=== PATIENT | male | born 1955 | race Caucasian/White ===

== ENCOUNTER → 2017-07-15 | Outpatient (CLI) | payer OTHER ==
[~2017-07-15] MED LIST: ABILIFY 5 MG TAB5 MG PO; ALDACTONE25 MG PO; AMITRIPTYLINE H50 M2 GT; BENTYL 10 MG CA10 M1 PO; CHLORTHALIDONE25 MG PO; CLONAZEPAM PO; CLONIDINE HCL0.2 M2 PO; COZAAR 25 MG TA25 M1 PO; CRESTOR20 MG PO; DEPAKOTE ER500 M1 PO; FLECAINIDE ACET50 M1 PO; INSPRA25 MG PO; LOFIBRA160 MG PO; NEXIUM40 MG PO; POTASSIUM20 PO; PRADAXA150 MG PO; PROTONIX40 M1 PO; SINGULAIR 10 MG10 M1 PO; SYNTHROID112 MCG PO; TOPROL XL100 MG PO; TOPROL XL200 MG PO
[2017-07-15 09:36] LABS: HEMATOCRIT 45.6 % (42.0-52.0); HEMOGLOBIN 15.7 gm/dL (14.0-18.0); MCH 30.1 pg (26.0-34.0); MCHC 34.5 g/dL (28.0-37.0); MCV 87.4 fL (80.0-100.0); RBC 5.22 mil/uL (4.50-6.00); RDW 14.6 % (10.5-14.5); WBC 9.3 thou/uL (4.0-11.0)
[2017-07-15 09:48] LABS: CALCIUM 9.2 mg/dL (8.5-10.1); CREATININE 1.3 mg/dL (0.7-1.3); POTASSIUM 3.7 mmol/L (3.5-5.1)
[2017-07-15 09:54] LABS: ALBUMIN 3.6 g/dL (3.4-5.0); TOTAL BILIRUBIN 0.5 mg/dL (<0.1-1.0); TOTAL PROTEIN 7.3 g/dL (6.4-8.2)
== END ==
LOC: LABMALL 09:06 → CAT 13:16
PROVIDERS: Internal Medicine Cardiovascular Disease
DX: I48.91 Unspecified atrial fibrillation (principal)

== ENCOUNTER 2017-07-21 06:37 | Observation (INO) | payer OTHER ==
[2017-07-21] VITALS (13 sets, daily range): BP systolic 118–156; BP diastolic 72–87
[~2017-07-21] VITALS: Ht 188 cm; Wt 116.6 kg
--- NOTE | ~2017-07-21 | D ---
[facility] [place] [address] DISCHARGE SUMMARY Name: ARTHURJASONCHRISTOPHERNATTY [id number] Admission: 07/21/17 Attend Phys: Francisco Rausch MD Discharge: 07/22/17 Date of : 53 Report #: [id number] THIS REPORT FOR: //name// CC: Francisco Rausch Analisa Chaner DATE OF SERVICE: 07/22/2017 DISCHARGE DIAGNOSES: 1. Atrial fibrillation. 2. Mitral valve repair. PROCEDURES PERFORMED: AFib ablation. The patient is a 62-year-old with history of severe MR, status post mitral valve repair in 2004. Recently started having paroxysmal atrial fibrillation. He is here for an ablation. He underwent successful isolation of the 4 pulmonary veins. There were no intraprocedure complications. HOSPITAL COURSE: The patient was monitored overnight on telemetry, he remained in sinus rhythm. The following day, he denied any fevers or chills. He did have some pleuritic chest pain when taking a deep breath, which is standard for the AFib ablation. He denied any shortness of breath, PND, orthopnea. PHYSICAL EXAMINATION: HEART: Regular rate and rhythm. LUNGS: Clear to auscultation bilaterally. His right groin was healing nicely with no bruising or hematoma. As such, he was deemed stable for discharge home. He will be discharged on his same home medications, which include Pradaxa 150 mg twice a day. I also wrote him a prescription for flecainide 50 mg twice a day. He will follow up in my clinic in 3 months. <ELECTRONICALLY SIGNED> By: Francisco Rausch MD 08/19/17 1409 [id number] Francisco Rausch MD /nt
--- NOTE | ~2017-07-21 | P ---
[facility] [place] [address] PROCEDURE REPORT Name: NATTY JONES Room #: 212-P [facility] Lisa Cedillo#: [id number] Admission: 07/21/17 Attend Phys: Francisco Rausch MD Discharge: 07/22/17 Date of : 53 Report #: [id number] THIS REPORT FOR: //name// CC: Francisco Jacobie Sofie PREOPERATIVE DIAGNOSIS: Paroxysmal atrial fibrillation. POSTOPERATIVE DIAGNOSIS: Paroxysmal atrial fibrillation. HISTORY: The patient is a 62-year-old status post prior mitral valve repair with annuloplasty ring who was recently diagnosed with paroxysmal atrial fibrillation who is here for an AFib ablation. PROCEDURE PERFORMED: 1. AFib ablation, CPT code 42342. 2. Intracardiac echo, [address]. ANESTHESIA: The patient underwent general anesthesia with no anesthesia related complications. DESCRIPTION OF PROCEDURE: The patient underwent informed consent. We discussed the details of the procedure including the risks, which include but not limited to bleeding, vascular damage, cardiac perforation as well as stroke or OR. He understood these risks and is willing to proceed. The patient was brought to the EP laboratory in a fasting and sedated state and prepped and draped in a sterile fashion. I then injected lidocaine to the right groin and obtained access to the right femoral vein times 3 placing an 8-Luxembourger, 7-Luxembourger and 9-Luxembourger short sheath using the modified Seldinger technique. Next under fluoroscopy, I placed a decapolar catheter easily in the coronary sinus and an ice catheter into the right atrium. Using intracardiac ultrasound, I was able to visualize the two left and two right pulmonary veins. The patient had a thin fossa ovalis. A transseptal was performed and was straightforward. I then exchanged the SL1 for the cryo sheath and placed the cryoballoon into the left atrium. At baseline, the patient was in sinus rhythm with a sinus cycle length of 1125 milliseconds, KS interval 195 milliseconds, QRS duration 105 milliseconds, QT interval 500 milliseconds. Next, I isolated the left superior pulmonary vein. This required a total of 3 freezes. There were still some large potentials noted, but pacing of the Lasso demonstrated that these were likely far field left atrial appendage potentials. I then turned my attention to the left inferior pulmonary vein and this isolated during the first freeze and I performed a total of two 4 minute freezes. I then turned my attention to the right superior pulmonary vein and I performed phrenic nerve pacing from the decapolar catheter placed at the level of the subclavian. This required a total of 3 freezes, which resulted in splitting of the potentials, but not isolation as pacing resulted in continued conduction. I therefore decided to go to the [address] [address] PROCEDURE REPORT Name: NATTY JONES Room #: 212-P [facility] Lisa Cedillo#: [id number] Admission: 07/21/17 Attend Phys: Francisco Rausch MD Discharge: 07/22/17 Date of : 53 Report #: [id number] right inferior vein to see if this would isolate the right superior as well. I performed a freeze of this vein and this vessel was quite large based on venography. I reached a maximal negative temperature of negative 51 degrees. While phrenic nerve pacing, there is weakening of the phrenic nerve and we came off. During this freeze, the vein appeared to have been isolated and the duration of the freeze was 118 seconds. Over the next 10-15 minutes, the phrenic nerve returned. During this waiting period, I re-interrogated the left-sided veins and there was entrance and exit block in the left superior pulmonary vein. The left inferior remained isolated. The right superior was now isolated with evidence of entrance and exit block and the right inferior remained isolated as well. We monitored for a little bit longer and the phrenic nerve was returning to baseline. As such, the procedure was concluded. I pulled my catheters to the right atrium. Using intracardiac ultrasound, I verified that there was no evidence of pericardial effusion. As such, the patient received systemic protamine and once the ACT was within acceptable range, all sheaths were pulled and hemostasis was obtained. The patient awoke neurologically hemodynamically intact with no complications and no significant bleeding. Post-ablation, the patient remained in sinus rhythm with a sinus cycle length of 1070 milliseconds, KS interval 195 milliseconds, QRS duration 105 milliseconds and QT interval of 500 milliseconds. CONCLUSION: Successful AFib ablation with isolation of the four pulmonary veins. <ELECTRONICALLY SIGNED> By: Francisco Rausch MD 07/22/17 1747 1201 1253 Francisco Rausch MD /nt
[~2017-07-21 06:37] MED LIST changes: -BENTYL 10 MG CA10 M1 PO; -CHLORTHALIDONE25 MG PO; -COZAAR 25 MG TA25 M1 PO; -CRESTOR20 MG PO; -FLECAINIDE ACET50 M1 PO; -INSPRA25 MG PO; -POTASSIUM20 PO; -PRADAXA150 MG PO; -PROTONIX40 M1 PO; -TOPROL XL100 MG PO
[2017-07-21] MEDS ORDERED: PRADAXA150 MG PO (06:54)
[2017-07-21] MEDS ORDERED: BENTYL 10 MG CA10 M1 PO (06:56)
[2017-07-21] MEDS ORDERED: CHLORTHALIDONE25 MG PO (06:56)
[2017-07-21] MEDS ORDERED: COZAAR 25 MG TA25 M1 PO (06:59)
[2017-07-21] MEDS ORDERED: TOPROL XL100 MG PO (06:59)
[2017-07-21] MEDS ORDERED: POTASSIUM20 PO (07:00)
[2017-07-21] MEDS ORDERED: PROTONIX40 M1 PO (07:00)
[2017-07-21] MEDS ORDERED: CRESTOR20 MG PO (07:00)
[2017-07-21] MEDS ORDERED: INSPRA25 MG PO (07:01)
[2017-07-21 07:25] LABS: ABSOLUTE NEUTROPHILS 4.3 thou/uL (1.4-8.2); BASOPHILS 0.8 % (0.0-2.0); EOSINOPHILS 3.3 % (0.0-3.0); HEMATOCRIT 44.2 % (42.0-52.0); HEMOGLOBIN 15.3 gm/dL (14.0-18.0); LYMPHOCYTES 37.8 % (24.0-44.0); MCH 30.1 pg (26.0-34.0); MCHC 34.5 g/dL (28.0-37.0); MCV 87.3 fL (80.0-100.0); MONOCYTES 8.2 % (1.0-8.0); PLATELET COUNT 210 thou/uL (150-400); POLYS 49.9 % (36.0-66.0); RBC 5.06 mil/uL (4.50-6.00); RDW 14.7 % (10.5-14.5); WBC 8.6 thou/uL (4.0-11.0)
[2017-07-21 07:39] LABS: CALCIUM 8.9 mg/dL (8.5-10.1); CREATININE 1.4 mg/dL (0.7-1.3); POTASSIUM 3.2 mmol/L (3.5-5.1)
[2017-07-21 07:40] LABS: APTT 25.8 Seconds (24.5-32.8); INR 1.1; PROTIME 11.5 Seconds (9.3-11.4)
[2017-07-21 07:44] LABS: ALBUMIN 3.4 g/dL (3.4-5.0); TOTAL BILIRUBIN 0.4 mg/dL (<0.1-1.0); TOTAL PROTEIN 7.5 g/dL (6.4-8.2)
[2017-07-22 05:02] VITALS: BP 120/72
[2017-07-22 05:11] VITALS: BP 126/61
[2017-07-22 07:25] VITALS: BP 121/83
[2017-07-22] MEDS ORDERED: FLECAINIDE ACET50 M1 PO (08:25)
[2017-07-22 09:29] VITALS: BP 121/83
== END 2017-07-22 11:39 | disposition home or self-care (01) ==
LOC: CATH 06:37 → 2N 06:47 → CATH 07:38 → 2N 07-22 11:39
PROVIDERS: Internal Medicine Cardiovascular Disease
DX: I48.0 Paroxysmal atrial fibrillation (principal); I10 Essential (primary) hypertension; I49.5 Sick sinus syndrome; E11.9 Type 2 diabetes mellitus without complications; F31.9 Bipolar disorder, unspecified; E03.9 Hypothyroidism, unspecified; K21.9 Gastro-esophageal reflux disease without esophagitis; E66.9 Obesity, unspecified; Z68.33 Body mass index [BMI] 33.0-33.9, adult; Z98.890 Other specified postprocedural states
CPT/HCPCS: 62110; 62900; 70005

== ENCOUNTER → 2017-07-25 | Outpatient (CLI) | payer OTHER ==
[~2017-07-25] MED LIST changes: +BENTYL 10 MG CA10 M1 PO; +CHLORTHALIDONE25 MG PO; +COZAAR 25 MG TA25 M1 PO; +CRESTOR20 MG PO; +FLECAINIDE ACET50 M1 PO; +INSPRA25 MG PO; +POTASSIUM20 PO; +PRADAXA150 MG PO; +PROTONIX40 M1 PO; +TOPROL XL100 MG PO
== END ==
LOC: RAD 09:38
DX: J98.11 Atelectasis (principal); I77.819 Aortic ectasia, unspecified site; Z98.890 Other specified postprocedural states

== ENCOUNTER → 2017-07-26 | Outpatient (CLI) | payer OTHER ==
--- NOTE | ~2017-07-26 | 2DMMODE ---
[facility] [place] [address] 2 D/M-MODE ECHOCARDIOGRAM Name: NATTY JONES Room #: [facility] [id number] Admission: 07/26/17 Attend Phys: Keshawn Lovell MD Discharge: Date of : 53 Date of Service: 07/26/17 1335 Report #: [id number] THIS REPORT FOR: //name// APPROVED REPORT Study performed: 07/26/2017 11:58:56 EXAM: Limited 2D, Doppler, and color-flow Echocardiogram Patient Location: Out-Patient Status: routine BSA: 2.37 HR: 57 bpm BP: 138/87 mmHg Rhythm: NSR Other Information Study Quality: Adequate Indications Short of breath. Status post ablation for Afib on 07/21/17. Limited echo for LV function and rule our pericardial effusion. (Complete done 06/27/17) Hx: MV repair 2D Dimensions Ascending Ao: 37.57 (22-36mm) Aortic Root: 49.98 mm Aortic Valve AoV Peak Humberto.: 1.39 m/s AO Peak Gr.: 7.72 mmHg Tricuspid Valve TR Peak Humberto.: 2.08 m/s TR Peak Gr.: 17.38 mmHg Left Ventricle The left ventricle is normal size. Left ventricular systolic function is low normal. LVEF is 50%. Right Ventricle The right ventricle is normal size. Atria Left atrium is dilated. The right atrium size is normal. [facility] [address] [place] [address] 2 D/M-MODE ECHOCARDIOGRAM Name: NATTY JONES Room #: [facility]#: [id number] Admission: 07/26/17 Attend Phys: Keshawn Lovell MD Discharge: Date of : 53 Date of Service: 07/26/17 1335 Report #: [id number] Aortic Valve The aortic valve is normal in structure. Trace aortic regurgitation. There is no aortic valvular stenosis. Mitral Valve Mitral valve is normal in structure. History of mitral valve repair with #30 St. Shailesh annuloplasty ring. Mean pressure gradient of 2.2mmHg. Trace mitral regurgitation. No evidence of mitral valve stenosis. Tricuspid Valve The tricuspid valve is normal in structure. Trace tricuspid regurgitation. Estimated PAP is 17mmHg plus the right atrial pressure. Great Vessels Aortic root is dilated at the level of the sinuses at 5.0cm. The ascending aorta is borderline dilated. IVC is not well visualized. Pericardium There is no pericardial effusion. <Conclusion> The left ventricle is normal size. LVEF is 50%. The right ventricle is normal size. Left atrium is dilated. The aortic valve is normal in structure. Trace aortic regurgitation. Mitral valve is normal in structure. Trace mitral regurgitation. History of mitral valve repair with #30 St. Shailesh annuloplasty ring. Mean pressure gradient of 2.2mmHg. The tricuspid valve is normal in structure. Trace tricuspid regurgitation. Estimated PAP is 17mmHg plus the right atrial pressure. There is no pericardial effusion. <ELECTRONICALLY SIGNED> By: Timoteo Antonio MD 07/26/17 1335 133 34 Timoteo Antonio MD /INF
== END ==
LOC: CV 12:47
DX: R06.00 Dyspnea, unspecified (principal)

== ENCOUNTER → 2019-03-14 | Outpatient (CLI) | payer OTHER ==
--- NOTE | 2019-03-14 09:37 | 2DMMODE ---
[facility] [place] [address] 2 D/M-MODE ECHOCARDIOGRAM Name: NATTY JONES Room #: REG [facility]#: [id number] Admission: 03/14/19 Attend Phys: Francisco Rausch Discharge: Date of : 53 Report #: [id number] THIS REPORT FOR: //name// APPROVED REPORT Study performed: 03/14/2019 07:53:26 EXAM: Comprehensive 2D, Doppler, and color-flow Echocardiogram Patient Location: Out-Patient Status: routine BSA: 2.41 HR: 56 bpm BP: 146/82 mmHg Rhythm: NSR Other Information Study Quality: Adequate Indications Short of breath, chest pain. Hx: Afib, ablation, MV repair. 2D Dimensions RVDd: 36.76 mm IVSd: 11.00 (7-11mm) LVOT Diam: 23.01 (18-24mm) LVDd: 54.78 mm PWd: 11.00 (7-11mm) Ascending Ao: 35.32 (22-36mm) LVDs: 36.54 (25-40mm) Aortic Root: 50.26 mm Volumes Left Atrial Volume (Systole) Single Plane 4CH: 76.86 mL Single Plane 2CH: 72.79 mL LA ESV Index: 33.00 mL/m2 Aortic Valve AoV Peak Humberto.: 1.20 m/s AO Peak Gr.: 5.74 mmHg LVOT Max P.03 mmHg LVOT Max V: 0.87 m/s RAFIA Vmax: 3.02 cm2 Mitral Valve MV Decel. Time: 311.80 ms MV PHT: 90.42 ms MVA (PHT): 2.39 cm2 [facility] [place] [address] 2 D/M-MODE ECHOCARDIOGRAM Name: NATTY JONES Room #: [facility]#: [id number] Admission: 03/14/19 Attend Phys: Francisco Rausch Discharge: Date of : 53 Report #: [id number] IVRT: 101.50 ms Pulmonary Valve PV Peak Humberto.: 0.85 m/s PV Peak Gr.: 2.91 mmHg Pulmonary Vein P Vein S: 0.49 m/s P Vein D: 0.45 m/s P Vein S/D Ratio: 1.09 Tricuspid Valve TR Peak Humberto.: 2.32 m/s RAP Estimate: 5.00 mmHg TR Peak Gr.: 22.00 mmHg PA Pressure: 27.00 mmHg Left Ventricle The left ventricle is normal size. There is normal left ventricular wall thickness. Left ventricular systolic function is normal. LVEF is 50-55%. Right Ventricle The right ventricle is normal size. The right ventricular systolic function is normal. Atria Left atrium is mildly dilated. The right atrium size is normal. Aortic Valve The aortic valve is normal in structure. No aortic regurgitation is present. There is no aortic valvular stenosis. Mitral Valve History of Mitral Valve Repair with #30 annuloplasty ring. Mean pressure gradient through the valve is 2mmHg. Trace mitral regurgitation. Tricuspid Valve The tricuspid valve is normal in structure. Trace tricuspid regurgitation. Estimated PAP is 25-30mmHg. Pulmonic Valve The pulmonary valve is normal in structure. Mild pulmonic regurgitation. Great Vessels [facility] [employer] [place] [address] 2 D/M-MODE ECHOCARDIOGRAM Name: NATTY JONES [id number] Admission: 03/14/19 Attend Phys: Francisco Rausch Discharge: Date of : 53 Report #: [id number] Aortic root is dilated at 5.0cm. The ascending aorta is normal in size. IVC is normal in size and collapses >50% with inspiration. Pericardium There is no pericardial effusion. <Conclusion> The left ventricle is normal size. LVEF is 50-55%. Left atrium is mildly dilated. The aortic valve is normal in structure. History of Mitral Valve Repair with #30 annuloplasty ring. Mean pressure gradient through the valve is 2mmHg. Trace mitral regurgitation. The tricuspid valve is normal in structure. Trace tricuspid regurgitation. Estimated PAP is 25-30mmHg. The pulmonary valve is normal in structure. Mild pulmonic regurgitation. There is no pericardial effusion. <ELECTRONICALLY SIGNED> By: Timoteo Antonio MD 03/14/19936 6 6 Timoteo Antonio MD /INF
== END ==
LOC: CV 07:33
DX: I37.1 Nonrheumatic pulmonary valve insufficiency (principal)

== ENCOUNTER → 2020-02-28 | Outpatient (CLI) | payer OTHER | LOC: SJCVCIMAG 14:28 → SJCVC 14:28 | PROVIDERS: ATTEND Internal Medicine Cardiovascular Disease | DX: Z01.810 Encounter for preprocedural cardiovascular examination (principal); R94.31 Abnormal electrocardiogram [ECG] [EKG]; R00.1 Bradycardia, unspecified; I48.0 Paroxysmal atrial fibrillation; I71.2 Thoracic aortic aneurysm, without rupture ==

== ENCOUNTER → 2020-03-11 | Outpatient (CLI) | payer OTHER ==
[~2020-03-11] MED LIST changes: +BENZTROPINE MES1 MG PO; +CATAPRES0.2 MG PO; +CLONIDINE HCL0.1 M1 PO; -CLONIDINE HCL0.2 M2 PO; +LIBRAX CAPSULE1 EACH PO; +MULTIVITAMINS PO; +PROAIR HFA8.5 GM INH; +PROPRANOLOL 4040 M1 PO; +REXULTI2 MG PO; +SYNTHROID112 MC1 PO; +TURMERIC500 M2 PO
== END ==
LOC: CAT 07:36
PROVIDERS: ATTEND Internal Medicine Cardiovascular Disease
DX: N28.1 Cyst of kidney, acquired (principal); I71.9 Aortic aneurysm of unspecified site, without rupture; M47.817 Spondylosis without myelopathy or radiculopathy, lumbosacral region

== ENCOUNTER → 2020-03-18 | Outpatient (CLI) | payer OTHER | LOC: LAB 07:50 | PROVIDERS: ATTEND Orthopaedic Surgery | DX: Z01.812 Encounter for preprocedural laboratory examination (principal); Z20.828 Contact with and (suspected) exposure to other viral communicable diseases ==

== ENCOUNTER 2020-03-24 06:29 | Inpatient (IN) | payer OTHER ==
[2020-03-10 09:43] LABS: URINE BILIRUBIN NEGATIVE (Negative); URINE BLOOD NEGATIVE (Negative); URINE CLARITY CLEAR; URINE COLOR YELLOW; URINE GLUCOSE-RANDOM* NEGATIVE (Negative); URINE KETONES NEGATIVE (Negative); URINE LEUKOCYTES-REFLEX NEGATIVE (Negative); URINE NITRITE-REFLEX NEGATIVE (Negative); URINE PROTEIN (DIPSTICK) NEGATIVE (Negative); URINE UROBILINOGEN 0.2 E.U./dl (0.2-1.0)
[2020-03-10 10:23] LABS: HEMATOCRIT 45.2 % (42.0-52.0); HEMOGLOBIN 15.4 gm/dL (14.0-18.0); MCH 30.1 pg (26.0-34.0); MCHC 34.1 g/dL (28.0-37.0); MCV 88.4 fL (80.0-100.0); RBC 5.11 mil/uL (4.50-6.00); RDW 15.3 % (10.5-14.5)
[2020-03-10 10:31] LABS: ALBUMIN 3.9 g/dL (3.4-5.0); CALCIUM 8.8 mg/dL (8.5-10.1); CREATININE 1.4 mg/dL (0.7-1.3); POTASSIUM 3.5 mmol/L (3.5-5.1)
[2020-03-10 10:35] LABS: INR 1.1; PROTIME 11.7 Seconds (9.3-11.4)
[~2020-03-24] VITALS: Ht 188 cm; Wt 115.7 kg
--- NOTE | ~2020-03-24 | D ---
[facility] [place] [address] DISCHARGE SUMMARY Name: NATTY JONES Naheed Room #: 438-P [facility] IN ..#: [id number] Admission: 03/24/20 Attend Phys: Justin Gil MD Discharge: 03/28/20 Date of : 53 Report #: [id number] THIS REPORT FOR: cc: FAM - Family physician unknown FAM - Family physician unknown Justin Gil MD ~ CC: Justin Gil [facility] unknown KODY MERRITT DATE OF SERVICE: 03/28/2020 FINAL DIAGNOSIS: End-stage degenerative arthritis, left knee. OPERATION PROCEDURES: Left total knee arthroplasty. HISTORY OF PRESENT ILLNESS: This 65-year-old gentleman presents with progressive degenerative arthritis involving the left knee. He has tried conservative measures without much benefit and has elected to go ahead with left total knee arthroplasty. HOSPITAL COURSE: The patient was admitted and taken to the operating room on 03/24/2020. He underwent left total knee replacement, which he tolerated nicely. Postoperatively, he had moderate postoperative pain, which was managed with IV analgesics and then advanced to first oxycodone and then hydrocodone. His pain seemed to be well managed at the time of discharge. He was able to resume a regular diet. He started physical therapy and made slow progress. The knee dressing is clean and dry and he is improving in terms of range of motion. He does have a history of some chronic pain and so pain management was somewhat difficult. He also developed a mild low-grade fever ranging up to 100-101. This was evaluated with several studies. Chest x-ray was normal without any evidence of pneumonia nor significant atelectasis. His oxygen saturation levels have been normal. His white count was only 9900. He was retested for flu and for COVID and both those tests were negative. Blood cultures were obtained and they are no growth at this time. The knee itself demonstrates no evidence of infection as the surrounding soft tissues looked normal and he is advancing nicely with range of motion and strength. The issue of this unexplained low-grade fever was discussed at some length with Dr. Avalos from the hospitalist group and with the patient and his . I suspect the most likely explanation is mild atelectasis, although his chest x-ray is normal and his lung sounds are good. I do not see a reason to keep him in the hospital for further observation as he is feeling well and seems to be safe and active and independent. We have decided to send him home on a few days of Augmentin along with his other postop medications. [address] [address] DISCHARGE SUMMARY Name: NATTY JONES Room #: 438-P [facility].#: [id number] Admission: 03/24/20 Attend Phys: Justin Gil MD Discharge: 03/28/20 Date of : 53 Report #: [id number] DISCHARGE MEDICATIONS: His postop medications include Augmentin 875 one tablet b.i.d., Xarelto 10 mg once daily, hydrocodone 10 mg q.4-6 hours p.r.n. for pain. Catapres 0.2 mg daily, chlorthalidone 25 mg daily, losartan 25 mg daily, potassium 20 mEq daily, Crestor 20 mg daily, Inspra 25 mg 2 tablets daily, Cogentin 1 mg twice daily, Librax one tablet twice daily, propranolol 40 mg twice daily, Synthroid 112 mcg daily, clonidine 0.1 mg daily, albuterol inhaler 2 puffs q. 6 hours p.r.n. for wheezing. I have asked him to follow up with his primary care physician for routine general medical and pulmonary management. I have asked him to call me should there be any increasing problems or symptoms of any variety. I will plan to see him back in my office in 1 week for followup and in 2 weeks for suture removal. By: 1257 [id number] Justin Gil MD /nt
[2020-03-24 06:54] VITALS: BP 170/106
[2020-03-24 07:46] VITALS: BP 154/92
[2020-03-24 16:19] VITALS: BP 145/101
[2020-03-24 18:57] VITALS: BP 129/98
--- NOTE | 2020-03-24 19:35 | NUR ---
PATIENT ARRIVED ON UNIT AT 1113 FROM POST OP REPORT WAS GIVEN. PATIENT ALERT XS4. AT BEDSIDE . PT HAD KEFT TOTAL KNEE REPLACEMENT HAS HEMOVAC TO RIGHT KNEE 250 CC IN VAC DRAINED. DRAINED 50 CC AT 1800 LEFT KNEE WITH PICCO DRESSING IN PLACE. HAS THIGH HIH TEDS AND SCD'S MAYURI LE'S INTACT. HAS ICE BAG FOR COMFORT. HAS LEFT HAND 20 GAUGE WITH 1/2 NS INFUSING AT 100 CC PER HOUR. PT IS REGULAR DIET. HAS LEFT EYE THAT IS RED CALLED AND RECIEVED ORDER FOR NATURAL TEARS PRN EVERY 2 HOURS NEEDED. IV ABT GIVEN. PT IS PLEASANT AND COOPERATIVE WITH CARE STANDING AND USING URINAL XS 2.
--- NOTE | 2020-03-25 04:35 | NUR ---
PT ALERT AND ORIENTED. LEFT KNEE WITH MANUEL DRSG C/D/I. LEFT FOOT WITH GOOD CSM. HEMOVAC INTACT WITH SMALL AMTS OF OUTPUT NOTED. PT ABLE TO STAND BY SIDE OF BED TO USE URINAL. BEEN HAVING A LOW GRADE FEVER.GETTING NORCO FOR PAIN.CALLS APPROPRIATELY.
[2020-03-25 04:50] VITALS: BP 154/103
[2020-03-25 06:56] LABS: HEMATOCRIT 39.9 % (42.0-52.0); HEMOGLOBIN 13.6 gm/dL (14.0-18.0); MCH 30.1 pg (26.0-34.0); MCHC 34.1 g/dL (28.0-37.0); MCV 88.3 fL (80.0-100.0); RBC 4.52 mil/uL (4.50-6.00); RDW 14.8 % (10.5-14.5); WBC 13.4 thou/uL (4.0-11.0)
[2020-03-25 08:03] LABS: CALCIUM 8.8 mg/dL (8.5-10.1); CREATININE 1.6 mg/dL (0.7-1.3)
[2020-03-25 08:12] LABS: POTASSIUM 2.8 mmol/L (3.5-5.1)
--- NOTE | 2020-03-25 08:19 | O ---
[facility] [place] [address] OPERATIVE REPORT Name: NATTY JONES Room #: 438-P ADM IN M.R.#: [id number] Admission: 03/24/20 Attend Phys: Justin Gil MD Discharge: Date of : 53 Report #: [id number] THIS REPORT FOR: cc: FAM - Family physician unknown FAM - Family physician unknown Justin Gil MD ~ CC: Justin Gil [facility] unknown KODY MERRITT DATE OF SERVICE: 03/24/2020 PREOPERATIVE DIAGNOSIS: Posttraumatic and degenerative arthritis, left knee. POSTOPERATIVE DIAGNOSIS: Posttraumatic and degenerative arthritis, left knee. PROCEDURE: Left total knee arthroplasty. SURGEON: Justin Gil MD INDICATIONS: This 65-year-old gentleman injured the left knee a number of years ago and underwent several surgeries including ACL reconstruction. He now has chronic posttraumatic degenerative arthritis with significant damage in all 3 compartments. He has difficulty remaining active and functional. He has elected to go ahead with left total knee replacement. DESCRIPTION OF PROCEDURE: The patient was taken to the operating room where he was placed under general anesthesia. A femoral nerve block was also applied. Prophylactic intravenous antibiotics were administered. The left knee and leg were meticulously prepped and draped. A thigh tourniquet was applied and inflated to 300 mmHg. An anterior longitudinal skin incision was made through his old surgical scar. This was carried through the medial retinaculum and the patella was reflected laterally. Marked degenerative change in all 3 compartments was noted. The intramedullary guides were used to make both the femoral and tibial cuts. The Rivera and Nephew knee system was utilized. The femur was cut in 5 degrees of valgus and seemed best suited for a size 6 femoral component. The tibia was cut perpendicular to long axis of the bone, which corrected the mild preoperative deformity. A size 6 tibial component also seemed to fit nicely. The patellar surface was resected and a 38 mm patellar button fit appropriately. Appropriate anchor holes were created. A trial reduction was performed and a +11 mm polyethylene spacer worked nicely resulting in full range of motion and good stability. The trial components were removed. The surfaces were thoroughly irrigated and dried. The intramedullary canal was blocked with bone block on both the femoral and tibial sides. Methyl methacrylate cement was mixed and injected into the [facility] [address] [place] [address] OPERATIVE REPORT Name: NATTY JONES Room #: 438-P [facility] IN ..#: [id number] Admission: 03/24/20 Attend Phys: Justin Gil MD Discharge: Date of : 53 Report #: [id number] porous surface of the proximal tibia. The Rivera and Nephew size 6 Legion high flexion Sharon II left base plate was applied. This was impacted into position and seated nicely and appeared to be secure. A 11 mm Legion cruciate retaining high flexion polyethylene liner was then inserted. It snapped into place and seated nicely and appeared to be secure. A size 6 left cruciate retaining Legion porous femoral component was impacted on the distal femur. A small amount of cement was used at the distal anchor holes. This component also seated nicely and appeared to be secure. A 38 mm Sharon II patellar resurfacing component was then applied using appropriate anchor holes and cement. It was secured with a patellar clamp until the cement had hardened. Once the cement was firm, range of motion, alignment and stability were assessed and felt to be satisfactory. The knee was copiously irrigated. A single Hemovac was left in the wound exiting through a separate stab incision. The tourniquet was deflated after a total tourniquet time of 56 minutes. There was a rather generalized oozing from the soft tissues. Satisfactory hemostasis was established with the use of cautery. The fascia was then closed with multiple #1 Vicryl sutures. The subcutaneous tissues were closed with 0 Monocryl. The skin was closed with skin ashvin. A sterile dressing was applied. The patient was awakened and returned to recovery room in good condition. <ELECTRONICALLY SIGNED> By: Justin Gil MD 03/25/20 0819 0938 [id number] Justin Gil MD /peterson
[2020-03-25 08:23] VITALS: BP 152/99
--- NOTE | 2020-03-25 11:28 | NUR ---
PATIENT IS ALERT AND ORIENTED X4. PATIENT WAS REPORTING PAIN AT A 7 AND GIVEN OXYCODONE, WELL REPORTING NAUSEA AND GIVEN ZOFRAN IV PUSH. PATIENT IS PLEASANT AND COOPERATIVE. REMOVED PATIENTS HEMOVAC DRAIN. INSERTION SITE IS CLEAN WITH NO REDNESS, PAIN, OR SWELLING. PATIENT ALSO WAS UP WALKING WITH PT TODAY.
--- NOTE | 2020-03-25 11:44 | NUR ---
I have reviewed the student documentation.
--- NOTE | 2020-03-25 12:44 | NUR ---
ASSESSMENT: CM REVIEWED CHART AND SPOKE WITH PT. PT IS S/P LEFT KNEE TOTAL ARTHROPLASTY. PT REPORTS LIVING IN A HOUSE WITH HIS . PT REPORTS ABOUT 2 STEPS WITH NO HANDRAILS TO ENTER. PT REPORTS ONCE INSIDE HE HAS ABOUT 12 STEPS WITH HANDRAILS TO HIS BEDROOM. PT REPORTS HE HAS A FWW AT HOME. PT STATES HE HAS BEEN TALKING WITH [facility] AND WOULD LIKE A REFERRAL SENT THERE FOR HH AT DISCHARGE. CM FAXED REFERRAL TO [facility] AND NOTIFIED LIASON. PLAN IS TO PT TO CONTINUE WITH THERAPY AND LIKELY DISCHARGE IN THE NEXT 1-2DAYS.
[2020-03-25 16:20] VITALS: BP 162/99
[2020-03-25 19:11] VITALS: BP 150/98
--- NOTE | 2020-03-26 01:50 | NUR ---
PT GIVEN NORCO FOR PAIN. HE IS ABLE TO STAND BY THE BEDSIDE AND USE URINAL. LEFT FOOT WITH GOOD CSM. AFEBRILE.MAKES NEEDS KNOWN. PROGRESSING TOWARDS CARE GOALS.
[2020-03-26 05:04] VITALS: BP 131/89
[2020-03-26 06:36] LABS: HEMATOCRIT 34.4 % (42.0-52.0); HEMOGLOBIN 11.8 gm/dL (14.0-18.0); MCHC 34.4 g/dL (28.0-37.0); RBC 3.95 mil/uL (4.50-6.00); WBC 11.1 thou/uL (4.0-11.0)
[2020-03-26 06:39] LABS: CALCIUM 8.5 mg/dL (8.5-10.1); CREATININE 1.5 mg/dL (0.7-1.3); MAGNESIUM 1.9 mg/dL (1.8-2.4)
[2020-03-26 06:47] LABS: POTASSIUM 2.9 mmol/L (3.5-5.1)
[2020-03-26 07:35] VITALS: BP 143/94
[2020-03-26 09:06] VITALS: BP 143/94
--- NOTE | 2020-03-26 10:59 | NUR ---
ON-GOING ASSESSMENT: CM REVIEWED CHART. PT IS STILL HAVING ALOT OF PAIN AND NEEDS TO CONTINUE TO WORK WITH THERAPY. PT IS NOT DISCHARGING TODAY. CM UPDATED LIASON FROM [facility] WHO IS FOLLOWING PT. CM WILL CONTINUE TO FOLLOW TO ASSIST NEEDED. PT COMPLETED PT CHOICE OF VENDOR FORM AND PLACED ON CHART.
--- NOTE | 2020-03-26 12:29 | NUR ---
ASSUMED CARE AT 0700. PT IS A&O X4. PT STANDS UP WHEN USING URINAL. PT DENIES N/V BUT COMPLAINS OF PAIN. PAIN MEDICATION WAS GIVEN TO PT. MANUEL DRESSING IS INTACT. DRESSING INCISION IS INTACT. MILES/ SCD HOSE ARE IN PLACE. VSS. L. HAND IV IS INTACT WITHOUT REDNESS OR SWELLING. DIET REGULAR. STARTING 1220, PT STATING TO COMPLAIN OF FEELING "YUCKY" AND TEMPERATURE WAS TAKEN AT 98.9. WILL CONTINUE TO MONITOR FOR PAIN AND DISCOMFORT. POTASSIUM CHLORIDE WAS GIVEN INSTRUCTED TO HELP INCREASE POTASSIUM LEVEL.
[2020-03-26 14:07] LABS: URINE BILIRUBIN NEGATIVE (Negative); URINE BLOOD NEGATIVE (Negative); URINE CLARITY CLEAR; URINE COLOR YELLOW; URINE GLUCOSE-RANDOM* NEGATIVE (Negative); URINE KETONES NEGATIVE (Negative); URINE LEUKOCYTES-REFLEX NEGATIVE (Negative); URINE NITRITE-REFLEX NEGATIVE (Negative); URINE PROTEIN (DIPSTICK) TRACE (Negative); URINE SPECIFIC GRAVITY 1.025 (1.005-1.035)
[2020-03-26 15:23] LABS: CALCIUM 8.4 mg/dL (8.5-10.1); CREATININE 1.6 mg/dL (0.7-1.3); POTASSIUM 3.2 mmol/L (3.5-5.1)
[2020-03-26 16:25] VITALS: BP 123/77
[2020-03-26 19:50] VITALS: BP 138/81
[2020-03-27 03:51] VITALS: BP 125/73
--- NOTE | 2020-03-27 04:47 | NUR ---
ASSUMED PT CARE AT 1900.PT C/O PAIN ON HIS L KNEE,MANAGED WITH MED.DRSG TO HIS KNEE DRY AND INTACT WITH MIN DRIED DRAINAGE NOTED.PT UP WITH WALKER TO USE HIS URINAL.PT RESTING ON HIS BED AT THIS TIME.CALL LIGHT WITHIN REACH.
[2020-03-27 05:40] LABS: HEMATOCRIT 32.4 % (42.0-52.0); HEMOGLOBIN 11.2 gm/dL (14.0-18.0); MCH 30.4 pg (26.0-34.0); MCHC 34.7 g/dL (28.0-37.0); MCV 87.7 fL (80.0-100.0); RBC 3.69 mil/uL (4.50-6.00); RDW 14.7 % (10.5-14.5); WBC 9.9 thou/uL (4.0-11.0)
[2020-03-27 05:56] LABS: CALCIUM 8.7 mg/dL (8.5-10.1); CREATININE 1.5 mg/dL (0.7-1.3); MAGNESIUM 1.9 mg/dL (1.8-2.4); POTASSIUM 3.1 mmol/L (3.5-5.1)
[2020-03-27 07:25] VITALS: BP 128/70
--- NOTE | 2020-03-27 11:19 | NUR ---
PT CARE ASSUMED AT 0700. A&Ox4. PT UP IN THE RECLINER. PAIN CONTROLLED WELL WITH PAIN MEDICATION ON BOARD. POTASSIUM AND MAGNESIUM REPLACEMENT GIVEN. IV PATENT WITH NO REDNESS OR EDEMA. ABX TREATMENT COMPLEETED. PT USES URINAL STANDING UP. MANUEL DRESSING, SCD'S, TEDS IN PLACE. FALL PROTOCOL IN PLACE. CALL LIGHT IN REACH. WILL CONTINUE TO MONITOR. PT WILL SEE PT AGAIN THIS AFTERNOON
[2020-03-27 16:25] VITALS: BP 128/89
[2020-03-27 19:14] VITALS: BP 126/78
[2020-03-28 03:20] VITALS: BP 136/86
--- NOTE | 2020-03-28 03:22 | NUR ---
PT OBSERVED TO HAVE ELEVATED TEMP AT START OF SHIFT,TYLENOL ADMINISTERED, EFFECTIVE.COVID TESTING CAME BACK NEGATIVE.PT ENCOURAGED TO USE HIS INCENTIVE SPIROMETER.PT VOIDING VIA URINAL,DARK YELLOW URINE NOTED.PT RESTING ON HIS BED AT THIS TIME.CALL LIGHT WITHIN REACH.
[2020-03-28 07:45] VITALS: BP 162/92
[2020-03-28 09:46] LABS: ABSOLUTE NEUTROPHILS 6.9 thou/uL (1.4-8.2); BASOPHILS 0.5 % (0.0-2.0); EOSINOPHILS 0.4 % (0.0-3.0); HEMATOCRIT 33.7 % (42.0-52.0); HEMOGLOBIN 11.5 gm/dL (14.0-18.0); LYMPHOCYTES 18.6 % (24.0-44.0); MCH 30.2 pg (26.0-34.0); MCHC 34.2 g/dL (28.0-37.0); MCV 88.2 fL (80.0-100.0); MONOCYTES 10.4 % (1.0-8.0); PLATELET COUNT 205 thou/uL (150-400); POLYS 70.1 % (36.0-66.0); RBC 3.82 mil/uL (4.50-6.00); RDW 14.5 % (10.5-14.5); WBC 9.9 thou/uL (4.0-11.0)
[2020-03-28 10:01] LABS: CALCIUM 9.3 mg/dL (8.5-10.1); CREATININE 1.4 mg/dL (0.7-1.3); MAGNESIUM 1.9 mg/dL (1.8-2.4); POTASSIUM 3.1 mmol/L (3.5-5.1)
--- NOTE | 2020-03-28 11:07 | NUR ---
PT CARE ASSUMED AT 0700. A&Ox4. PT CONTINUES TO HAVE ELEVATED TEMPERATURES. 100.1 THIS AM. PAIN MEDICATION GIVEN WITH TYLENOL RECHECKED AND 100 NOW. POTASSIUM AND MAGNESIUM ADDED TO DAILY MEDICATIONS DUE TO CONTINUING TO HAVE LOW LABS. COVID AND FLUE A,B NEGATIVE. IV PATENT WITH NO REDNESS OR EDEMA, SALINE LOCKED. IS ENCOURAGED. PAIN IS BEING MANAGED BETTER TODAY WITH PAIN MEDICATION ON BOARD. PT STATES THAT HE BECOMES NAUSEATED EVERYTIME HE WALKS WITH PT. AT BED SITE. FALL PROTOCOLL IN PLACE. CHEST XRAY PENDING TO BE REPEATED TODAY. CALL LIGHT IN REACH. PER DR. CHOUDHURY HAVE PT UP IN THE RECLINER MUCH POSSIBLE. WILL CONTINUE TO MONITOR. ENCOURAGED TO DRINK MORE. URINE OUTPUT VERY DARK. TEDS/ SCD'D IN PLACE. MANUEL DRESSING IN PLACE, DRY AND INTACT. DRESSING CHANGED TODAY.
[2020-03-28] MEDS ORDERED: XARELTO10 MG PO (12:50)
[2020-03-28] MEDS ORDERED: NORCO 10-325 T1 EACH PO (12:50)
[2020-03-28] MEDS ORDERED: AUGMENTIN 875-1 EACH PO (12:50)
[2020-03-28 12:53] VITALS: BP 143/94
--- NOTE | 2020-03-28 13:32 | NUR ---
on-going assessment: CM REVIEWED CHART AND PT HAS ORDERS TO DISCHARGE HOME TODAY [facility]. [facility] HAS ACCEPTED AND CM FAXED D/C PAPERWORK TO THEM AND CONFIRMED THEY RECEIVED IT. CM NOTIFIED [facility]. PT HAS EQUIPMENT AT HOME. PT REPORTS NO FURTHER NEEDS FROM . CASE CLOSED.
== END 2020-03-28 13:51 | disposition home health service (06) | DRG 469 ==
LOC: TBA 06:29 → 4S 06:29 → PRE 08:36 → 4S 11:22 → PRE 15:02 → 4S 03-28 13:51
PROVIDERS: Internal Medicine; Nurse Practitioner; ADMIT Orthopaedic Surgery; ATTEND Orthopaedic Surgery
PROC: 0SRD0J9 Replacement of Left Knee Joint with Synthetic Substitute, Cemented, Open Approach (ICD-10-PCS; principal; 2020-03-24)
DX: M17.12 Unilateral primary osteoarthritis, left knee (principal); R65.11 Systemic inflammatory response syndrome (SIRS) of non-infectious origin with acute organ dysfunction; I48.21 Permanent atrial fibrillation; E87.6 Hypokalemia; M17.32 Unilateral post-traumatic osteoarthritis, left knee; I10 Essential (primary) hypertension; E03.9 Hypothyroidism, unspecified; E78.5 Hyperlipidemia, unspecified; J45.909 Unspecified asthma, uncomplicated; E78.00 Pure hypercholesterolemia, unspecified; E83.42 Hypomagnesemia; I25.10 Atherosclerotic heart disease of native coronary artery without angina pectoris; E66.01 Morbid (severe) obesity due to excess calories; Z20.828 Contact with and (suspected) exposure to other viral communicable diseases; Z98.42 Cataract extraction status, left eye; Z98.41 Cataract extraction status, right eye; Z68.32 Body mass index [BMI] 32.0-32.9, adult; Z79.899 Other long term (current) drug therapy; J06.9 Acute upper respiratory infection, unspecified
CPT/HCPCS: 10102; 50010; 50101; 50415; 50954; 51130; 51225; 51412; 53364; 56525; 57095; 57103; 57104; 57180; 62110; 62900; 70005

== ENCOUNTER → 2021-02-24 | Outpatient (CLI) | payer OTHER ==
[~2021-02-24] MED LIST changes: +AUGMENTIN 875-1 EACH PO; +NORCO 10-325 T1 EACH PO; +XARELTO10 MG PO
== END ==
LOC: SJCVC 10:22
PROVIDERS: ATTEND Internal Medicine Cardiovascular Disease
DX: R94.31 Abnormal electrocardiogram [ECG] [EKG] (principal); R00.1 Bradycardia, unspecified; I48.0 Paroxysmal atrial fibrillation; I71.9 Aortic aneurysm of unspecified site, without rupture; I10 Essential (primary) hypertension; K21.9 Gastro-esophageal reflux disease without esophagitis; E03.9 Hypothyroidism, unspecified; E66.9 Obesity, unspecified; Z98.890 Other specified postprocedural states; Z79.899 Other long term (current) drug therapy; Z72.89 Other problems related to lifestyle